=== PATIENT | male | born 1985 | race African-American/Black ===

== ENCOUNTER 2016-11-17 17:06 | Emergency (ER) | payer SELFPAY ==
[~2016-11-17] VITALS: Ht 177.8 cm; Wt 65.4 kg
[2016-11-17 17:13] VITALS: BP 159/76; PULSE 92; RESP 20; TEMP 101.9; O2SAT 97
[2016-11-17 17:30] VITALS: BP 159/76; PULSE 97; RESP 18; TEMP 101.9; O2SAT 96
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
[2016-11-17] MEDS ORDERED: HYDROmorphone HCL PF 1 MG/ML VIAL IV PUSH ONE ×2 (17:45→19:15)
[2016-11-17] MEDS ORDERED: cefTRIAXone INJ 2,000 MG in SODIUM CHLORIDE 0.9% INJ 100 ML IV ONE (17:45)
[2016-11-17] MEDS ORDERED: ONDANSETRON HCL 4 MG/2 ML VIAL IV PUSH ONE (17:45)
[2016-11-17] MEDS ORDERED: SODIUM CHLOR 0.9% 1000 ML INJ 1,000 ML IV ONE ×2 (17:45→20:45)
[2016-11-17] MEDS ORDERED: ACETAMINOPHEN 500 MG CPLT PO ONE (17:45)
[2016-11-17 17:50] VITALS: O2SAT 98
[2016-11-17 18:05] LABS: AUTOMATED NEUTROPHIL # 6.5 TH/MM3 (1.8-7.7); BASOPHIL # 0.5 TH/MM3 (0-0.2); BASOPHIL % 4.8 % (0.0-2.0); EOSINOPHIL % 0.1 % (0.0-4.0); HEMATOCRIT 41.6 % (39.0-51.0); HEMO FLAGS DIFF FINAL; LYMPHOCYTE # 1.8 TH/MM3 (1.0-4.8); MEAN CORPUSCULAR HGB CONC 33.4 % (32.0-36.0); MONO % 10.1 % (0.0-8.0); PLATELET COUNT 314 TH/MM3 (150-450); RED BLOOD COUNT 4.62 MIL/MM3 (4.50-5.90); RED CELL DISTRIBUTION WIDTH 11.3 % (11.6-17.2); WHITE BLOOD COUNT 9.8 TH/MM3 (4.0-11.0)
[2016-11-17 18:13] LABS: CHLORIDE 99 MEQ/L (98-107); POTASSIUM 3.3 MEQ/L (3.5-5.1); SODIUM (NA) 136 MEQ/L (136-145)
[2016-11-17 18:17] LABS: ANION GAP 9 MEQ/L (5-15); BICARBONATE 28.2 MEQ/L (21.0-32.0); BLOOD UREA NITROGEN 9 MG/DL (7-18)
[2016-11-17 18:18] LABS: INTERNATIONAL NORMALIZED RATIO 1.2 RATIO; PROTHROMBIN TIME - PATIENT 13.1 SEC (9.8-11.6)
[2016-11-17 18:19] LABS: ALT (GPT) 19 U/L (12-78)
[2016-11-17 18:20] LABS: AST (GOT) 20 U/L (15-37); GLOMERULAR FILTRATION RATE 64 ML/MIN (>89)
[2016-11-17 18:21] LABS: TOTAL BILIRUBIN ADULT 0.6 MG/DL (0.2-1.0)
[2016-11-17 18:22] LABS: ALKALINE PHOSPHATASE 79 U/L (45-117)
--- NOTE | 2016-11-17 18:27 | RADRPT ---
EXAM DATE/TIME: 11/17/2016 18:05 [facility] COMPARISON: No previous studies available for comparison. INDICATIONS : Fever MEDICAL HISTORY : None. SURGICAL HISTORY : None. ENCOUNTER: Initial ACUITY: 4 - 6 days PAIN SCORE: 0/10 LOCATION: Bilateral chest FINDINGS: Single AP view of the chest. The lungs are clear. Cardiomediastinal silhouette within normal limits. No evidence of pleural effusion or pneumothorax. CONCLUSION: No acute cardiopulmonary disease identified. Marco Antonio Sutton MD on November 17, 2016 at 18:25 Board Certified Radiologist. This report was verified electronically.
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
[2016-11-17] MEDS ORDERED: POTASSIUM CHLORIDE 20 MEQ CONTROLLED RELEASE TAB PO ONE (19:00)
[2016-11-17 19:32] VITALS: BP 138/79; PULSE 88; RESP 16; TEMP 98.5; O2SAT 99
[2016-11-17 21:13] LABS: GROSS BLOOD TUBE #1 0 (0); GROSS BLOOD TUBE #2 0 (0); GROSS BLOOD TUBE #3 0 (0); SUPERNATE COLOR TUBE #1 CLEAR (CLEAR); SUPERNATE COLOR TUBE #2 CLEAR (CLEAR); SUPERNATE COLOR TUBE #3 CLEAR (CLEAR)
[2016-11-17 21:14] LABS: CSF LYMPHOCYTES 48 %; CSF NEUTROPHILS 49 %; GROSS BLOOD TUBE #4 0 (0); SUPERNATE COLOR TUBE #4 CLEAR (CLEAR); WBC TUBE #4 83 /MM3 (0-10)
[2016-11-21 23:53] LABS: HAEMOPHILUS FLU AG TYPE B Not Detected (Not Detected); N MENINGITIDIS GRP B/ECOLI K1 Not Detected (Not Detected); N MENINGITIDIS GRP C/W135 Not Detected (Not Detected); N.MENINGITIDIS GRP A/Y Not Detected (Not Detected); STREPTOCOCCUS PNEUMONIAE Not Detected (Not Detected)
== END 2016-11-17 21:38 | disposition left against medical advice (07) ==
LOC: PHED 17:06
DX: G03.9 Meningitis, unspecified (principal); F17.200 Nicotine dependence, unspecified, uncomplicated
CPT/HCPCS: 62270; 70450; 71010; 80053; 82945; 83605; 84157; 85025; 85610; 85730; 86403; 87040; 87070; 87205; 87804; 89051; 96361; 96365; 96375; 96376; 99285; J0696; J1170; J2405; J7030

== ENCOUNTER 2016-11-18 09:34 | Inpatient (IN) | payer SELFPAY ==
[~2016-11-18] VITALS: Ht 180.3 cm; Wt 66.7 kg
[2016-11-18 09:41] VITALS: BP 134/79; PULSE 85; RESP 16; TEMP 98; O2SAT 97
[2016-11-18] MEDS ORDERED: VANCOMYCIN INJ 1,000 MG in SODIUM CHLOR 0.9% 250 ML INJ 250 ML IV ONE (10:15)
[2016-11-18] MEDS ORDERED: ONDANSETRON HCL 4 MG/2 ML VIAL IVP PRN (10:30)
[2016-11-18] MEDS ORDERED: NALOXONE HCL 0.4 MG/ML AMP IV PRN (10:30)
[2016-11-18] MEDS ORDERED: SODIUM CHLORIDE 0.9% FLUSH 10 ML FLUSH IV FLUSH PRN (10:30)
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
[2016-11-18] MEDS: cefTRIAXone INJ 2,000 MG in SODIUM CHLORIDE 0.9% INJ 100 ML IV SCH ×2 (11:25→22:56)
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
[2016-11-18] MEDS: ACETAMINOPHEN 325 MG TAB PO PRN ×2 (18:02→21:27)
[2016-11-18 20:00] VITALS: BP 136/77; PULSE 100; RESP 28; TEMP 98.6; O2SAT 100
[2016-11-18] MEDS: SODIUM CHLORIDE 0.9% FLUSH 10 ML FLUSH IV FLUSH SCH (20:43)
[2016-11-19 01:07] VITALS: BP 126/84; PULSE 64; RESP 16; TEMP 97.2; O2SAT 97
[2016-11-19] MEDS: ACETAMINOPHEN 325 MG TAB PO PRN (06:41)
[2016-11-19 06:56] LABS: AUTOMATED NEUTROPHIL # 2.2 TH/MM3 (1.8-7.7); EOSINOPHIL # 0.1 TH/MM3 (0-0.4); EOSINOPHIL % 1.8 % (0.0-4.0); HEMATOCRIT 36.8 % (39.0-51.0); HEMO FLAGS DIFF FINAL; LYMPHOCYTE # 1.8 TH/MM3 (1.0-4.8); MEAN CELL VOLUME 90.8 FL (80.0-100.0); MEAN CORPUSCULAR HEMOGLOBIN 30.3 PG (27.0-34.0); MEAN CORPUSCULAR HGB CONC 33.3 % (32.0-36.0); NEUT % 47.2 % (16.0-70.0); PLATELET COUNT 268 TH/MM3 (150-450); RED BLOOD COUNT 4.05 MIL/MM3 (4.50-5.90); RED CELL DISTRIBUTION WIDTH 11.1 % (11.6-17.2); WHITE BLOOD COUNT 4.7 TH/MM3 (4.0-11.0)
[2016-11-19 08:00] VITALS: BP 136/82; PULSE 60; RESP 16; TEMP 97.8; O2SAT 100
--- NOTE | 2016-11-19 08:40 | HHI.PR ---
Subjective Remarks Patient reports is feeling great. Headache is mild. No fevers or chills. No neck stiffness. I discussed with micro-. CSF studies negative at 48 hours. Objective Vitals Vital Signs Date Time Temp Pulse Resp B/P Pulse Ox O2 Delivery O2 Flow Rate FiO2 11/19/16 05:08 11/19/16 01:07 97.2 64 16 126/84 97 11/18/16 20:00 98.6 100 28 136/77 100 11/18/16 10:02 Room Air 11/18/16 09:41 98.0 85 16 134/79 97 I/O 11/18/16 11/18/16 11/18/16 11/19/16 11/19/16 11/19/16 06:59 14:59 22:59 06:59 14:59 22:59 Intake Total 370 ml 50 ml Balance 370 ml 50 ml Intake IV Total 370 ml 50 ml # Voids 1 # Bowel Movements 1 Result Diagram: 11/19/1613 Objective Remarks GENERAL: This is a well-nourished, well-developed patient, in no apparent distress. CARDIOVASCULAR: Normal rate and regular rhythm without murmurs, gallops, or rubs. RESPIRATORY: Good respiratory efforts. Breath sounds equal and clear to auscultation bilaterally. GASTROINTESTINAL: Abdomen soft, non-tender, non-distended. Normal active bowel sounds MUSCULOSKELETAL: Extremities without cyanosis, or edema. NEURO: Alert & Oriented x4 to person, place, time, situation. Moves all ext x4 PSYCH: Appropriate mood and affect. A/P Problem List: (1) Meningitis ICD Code: G03.9 Status: Acute Plan: WBC 83, Glucose 55, Protein 60. No history or symptoms of HSV. Most likely viral. Fever resolved. No stiff neck. Only a mild headache. Patient treated with prophylactic antibiotics. CSF cultures negative at 48 hours. He was advised that he probably had a viral meningitis which is resolving quickly. His symptoms are expected to completely resolve within 7-10 days. He is deemed stable for discharge. Patient was counseled on when to return to the emergency room. (2) Headache ICD Code: R51 Status: Acute Plan: Much improved. Can use Tylenol PRN (3) Tobacco abuse ICD Code: Z72.0 Status: Acute Plan: Patient counseled to quit. Discharge Planning Discharge home in good condition Activity: Regular as tolerated Diet: Regular Meds: No new medications. Follow-up: With PCP as scheduled. Pilar Jordan MD Nov 19, 2016 08:40
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
[2016-11-19] MEDS: cefTRIAXone INJ 2,000 MG in SODIUM CHLORIDE 0.9% INJ 100 ML IV SCH (08:46)
[2016-11-19] MEDS: SODIUM CHLORIDE 0.9% FLUSH 10 ML FLUSH IV FLUSH SCH (08:50)
== END 2016-11-19 10:09 | disposition home or self-care (01) | DRG 76 ==
LOC: PHED 09:34 → PHEDA 10:11 → PH3A 11:13
PROVIDERS: ADMIT Family Medicine; ATTEND Family Medicine
DX: A87.9 Viral meningitis, unspecified (principal); F17.210 Nicotine dependence, cigarettes, uncomplicated
CPT/HCPCS: 85025; J0696; J3370; J7050